=== PATIENT | female | born 1930 | race Caucasian/White ===

== ENCOUNTER 2016-10-16 23:50 | Emergency (ER) | payer OTHER | END 2016-10-17 02:19 | disposition home or self-care (01) | LOC: ER 23:50 | DX: J90 Pleural effusion, not elsewhere classified (principal); R60.0 Localized edema; R11.0 Nausea; E78.5 Hyperlipidemia, unspecified; Z90.710 Acquired absence of both cervix and uterus; Z79.82 Long term (current) use of aspirin; Z88.0 Allergy status to penicillin; Z88.1 Allergy status to other antibiotic agents | CPT/HCPCS: 36415; 96374; J1940 ==